=== PATIENT | female | born 1960 | race Caucasian/White ===

== ENCOUNTER 2017-12-20 00:46 | Emergency (ER) | payer OTHER ==
[~2017-12-20] VITALS: Ht 162.6 cm; Wt 167.6 kg
[2017-12-20 00:48] VITALS: TEMP 36.7; Ht 162.6 cm; Wt 167.6 kg
[2017-12-20] MEDS ORDERED: DiphenhydrAMINE HCL 50 MG/ML VIAL IV STA (01:09)
[2017-12-20] MEDS ORDERED: METOCLOPRAMIDE HCL INJ 5 MG/ML 2 ML VIAL IV STA (01:09)
[2017-12-20] MEDS ORDERED: KETOROLAC TROMETHAMINE 30 MG/ML VIAL IV STA (01:09)
[2017-12-20 01:50] LABS: BASO % 0.2 %; BASO ABS # 0.02 K/uL (0-0.2); EOS % 3.1 %; EOS ABS # 0.27 K/uL (0-0.5); HEMATOCRIT 42.2 % (37-47); HEMOGLOBIN 14.5 g/dL (12.0-16.0); IG# 0.01 K/uL (0.00-0.02); LYMPH % 33.8 %; LYMPH ABS # 2.91 K/uL (1.2-3.4); MEAN CELL VOLUME 89.8 fL (80-100); MEAN CORPUSCULAR HEMOGLOBIN 30.9 pg (25-34); MEAN CORPUSCULAR HGB CONC 34.4 g/dl (32-36); MEAN PLATELET VOLUME 11.4 fL (7.4-10.4); MONO % 9.3 %; NEUT % 53.5 %; PLATELET COUNT 176 K/uL (130-400); RED CELL DISTRIBUTION WIDTH CV 14.1 % (11.5-14.5); RED CELL DISTRIBUTION WIDTH SD 46.4 fL (36.4-46.3); WHITE BLOOD COUNT 8.61 K/uL (4.8-10.8)
[2017-12-20 01:57] LABS: PTT PATIENT 25.4 SECONDS (21.0-31.0)
[2017-12-20] MEDS ORDERED: PRT/20 PO (01:58)
[2017-12-20] MEDS ORDERED: ESCI10TA17 PO (01:59)
[2017-12-20] MEDS ORDERED: AMLO5TAB3 PO (02:00)
[2017-12-20] MEDS ORDERED: SPIR50TA2 PO (02:01)
[2017-12-20] MEDS ORDERED: CHOL1000 PO (02:02)
[2017-12-20] MEDS ORDERED: ACET1TAB84 PO (02:02)
[2017-12-20] MEDS ORDERED: OXYC-57 PO (02:03)
[2017-12-20] MEDS ORDERED: FRS/40 PO (02:04)
[2017-12-20 02:10] LABS: ALBUMIN 3.5 gm/dl (3.4-5.0); CALCIUM 8.7 mg/dl (8.5-10.1); CREATININE 1.19 mg/dl (0.60-1.20); POTASSIUM 4.3 mmol/L (3.5-5.1); TOTAL PROTEIN 7.6 gm/dl (6.4-8.2)
--- NOTE | 2017-12-20 03:37 | EMERGENCY ROOM VISIT NOTE ---
History First contact with patient: 00:52 Chief Complaint: KNEEPAIN Stated Complaint: PAIN,BURNING IN LEFT KNEE History of Present Illness The patient is a 57 year old female who presents to the Emergency Room with complaints of severe increasing increasing left knee pain that goes up and down her leg for the past 2 days who has had problems with this knee for greater than 10 years. Patient states she is on chronic Percocet daily for this. She has seen an orthopedic doctor. She has had knee shots before with no relief of symptoms. She saw the family care doctor yesterday and told her to do x-rays and physical therapy. Patient did not do the x-rays. She has not started physical therapy. Patient states she cannot tolerate the pain and this is prompts her to come to the ER. Patient denies fall, new injury, chest pain, dyspnea, numbness, tingling, history of blood clots. Patient is able to ambulate on the leg. Review of Systems An 10 system review of systems was completed with positives and pertinent negatives listed in the HPI. Past Medical/Surgical History Osteoarthritis, hypertension, lymphedema on Lasix, GERD, depression Social History Smoking Status: Current Every Day Smoker Current/Historical Medications Scheduled Amlodipine (Norvasc), 5 MG PO DAILY Cholecalciferol (Vitamin D3), 1 TAB PO DAILY Escitalopram (Lexapro), 10 MG PO DAILY Furosemide (Lasix), 40 MG PO DAILY Pantoprazole (Protonix), 20 MG PO DAILY Spironolactone (Aldactone), 50 MG PO DAILY Scheduled PRN Acetaminophen (Tylenol Arthritis Ext Rel), 650 MG PO Q8H PRN for Pain Oxycodone/Acetaminophen 5MG/325MG (Percocet 5MG/325MG), 1 TABLET PO Q24H PRN for Pain Physical Exam Vital Signs Date Time Temp Pulse Resp B/P (MAP) Pulse Ox O2 Delivery O2 Flow Rate FiO2 12/20/17 02:25 63 22 136/64 95 Room Air 12/20/17 00:48 36.7 76 18 172/90 99 Room Air Physical Exam VITALS: Vitals are noted on the nurse's note and reviewed by myself. Vital signs stable. GENERAL: Morbidly obese patient, in no acute distress, nondiaphoretic, well- developed well-nourished. SKIN: Capillary reflex less than 2 seconds. HEENT: Normocephalic. PERRLA. EOMI. Nares patent. Mucous membranes moist. Neck is supple without nuchal rigidity. HEART: Regular rate and rhythm without murmurs gallops or rubs. LUNGS: Clear to auscultation bilaterally without wheezes, rales or rhonchi. No retractions or accessory muscle use. ABDOMEN: Positive bowel sounds x 4. Normal tympanic percussion. Soft, protuberant, obese, nontender, without masses or organomegaly. Moore sign negative. No guarding or rebound tenderness. MUSCULOSKELETAL: No gross musculoskeletal defects. No calf tenderness. Bilateral legs extremely edematous unchanged per patient. Left knee tender to palpation with increased pain with range of motion without erythema or warmth. Left femur valles ankle and foot nontender to palpation. Pedal pulses +2 equal and present bilaterally. NEURO: Patient was alert and oriented to person place and time. Normal sensation to light and sharp touch. No focal neurological deficits. Medical Decision & Procedures Laboratory Results 12/20/17 01:35 Red Blood Count 4.70, Mean Corpuscular Volume 89.8, Mean Corpuscular Hemoglobin 30.9, Mean Corpuscular Hemoglobin Concent 34.4, Mean Platelet Volume 11.4, Neutrophils (%) (Auto) 53.5, Lymphocytes (%) (Auto) 33.8, Monocytes (%) (Auto) 9.3, Eosinophils (%) (Auto) 3.1, Basophils (%) (Auto) 0.2, Neutrophils # (Auto) 4.60, Lymphocytes # (Auto) 2.91, Monocytes # (Auto) 0.80, Eosinophils # (Auto) 0.27, Basophils # (Auto) 0.02 12/20/17 01:35 Test 12/20/17 01:35 White Blood Count 8.61 K/uL (4.8-10.8) Red Blood Count 4.70 M/uL (4.2-5.4) Hemoglobin 14.5 g/dL (12.0-16.0) Hematocrit 42.2 % (37-47) Mean Corpuscular Volume 89.8 fL (80-100) Mean Corpuscular Hemoglobin 30.9 pg (25-34) Mean Corpuscular Hemoglobin Concent 34.4 g/dl (32-36) Platelet Count 176 K/uL (130-400) Mean Platelet Volume 11.4 fL (7.4-10.4) Neutrophils (%) (Auto) 53.5 % Lymphocytes (%) (Auto) 33.8 % Monocytes (%) (Auto) 9.3 % Eosinophils (%) (Auto) 3.1 % Basophils (%) (Auto) 0.2 % Neutrophils # (Auto) 4.60 K/uL (1.4-6.5) Lymphocytes # (Auto) 2.91 K/uL (1.2-3.4) Monocytes # (Auto) 0.80 K/uL (0.11-0.59) Eosinophils # (Auto) 0.27 K/uL (0-0.5) Basophils # (Auto) 0.02 K/uL (0-0.2) RDW Standard Deviation 46.4 fL (36.4-46.3) RDW Coefficient of Variation 14.1 % (11.5-14.5) Immature Granulocyte % (Auto) 0.1 % Immature Granulocyte # (Auto) 0.01 K/uL (0.00-0.02) Prothrombin Time 10.0 SECONDS (9.0-12.0) Prothromb Time International Ratio 1.0 (0.9-1.1) Activated Partial Thromboplast Time 25.4 SECONDS (21.0-31.0) Partial Thromboplastin Ratio 1.0 Anion Gap 5.0 mmol/L (3-11) Est Creatinine Clear Calc Drug Dose 82.2 ml/min Estimated GFR () 58.7 Estimated GFR (Non- 50.6 BUN/Creatinine Ratio 17.5 (10-20) Calcium Level 8.7 mg/dl (8.5-10.1) Total Bilirubin 0.2 mg/dl (0.2-1) Aspartate Amino Transf (AST/SGOT) 11 U/L (15-37) Alanine Aminotransferase (ALT/SGPT) 14 U/L (12-78) Alkaline Phosphatase 102 U/L (45-117) Total Protein 7.6 gm/dl (6.4-8.2) Albumin 3.5 gm/dl (3.4-5.0) Globulin 4.1 gm/dl (2.5-4.0) Albumin/Globulin Ratio 0.9 (0.9-2) Lyme Disease IgG Antibody NEG (NEG) Lyme Disease IgM Antibody NEG (NEG) Medications Administered Medications (Trade) Dose Ordered Sig/Froylan Route Start Time Stop Time Status Last Admin Dose Admin Ketorolac Tromethamine (Toradol Inj) 10 mg NOW STAT IV 12/20/17 01:09 12/20/17 01:11 DC 12/20/17 01:39 10 MG Diphenhydramine HCl (Benadryl Inj) 25 mg NOW STAT IV 12/20/17 01:09 12/20/17 01:11 DC 12/20/17 01:39 25 MG Metoclopramide HCl (Reglan Inj) 10 mg NOW STAT IV 12/20/17 01:09 12/20/17 01:11 DC 12/20/17 01:39 10 MG ED Course Prior records reviewed and summarized above. Triage Nursing notes reviewed. Additional history obtained from the family. The patient's history was concerning for swelling and pain in the leg. Differential diagnosis: Etiologies such as acute on chronic knee pain, DVT, musculoskeletal, infection, joint effusion, trauma, lymphedema, idiopathic, CHF, as well as others were entertained.. Physical examination: The physical examination revealed no signs of infection. Neurovascularly intact. ER treatment provided: Toradol, Reglan, Benadryl On reassessment the patient felt better. Diagnostics interpreted by me: The labs revealed stable H&H. Negative Lyme's No leukocytosis Imaging studies: US VENOUS LEFT LOWER EXTREMITY: Examination limited by patient body habitus. No evidence for deep venous thrombosis involving the left lower extremity. The calf veins were not well visualized. Radiologist: Stevie Schneider MD Knee x-ray with no acute fracture or effusion per my interpretation This appears to be consistent with acute on chronic knee pain. Patient was neurovascularly and neurologically intact. Patient had no acute findings for septic joint. No acute findings on the above workup. Her pain has been ongoing for greater than 10 years. She was offered a walker for ambulation and declined. She is advised to follow-up with orthopedics and physical therapy as instructed by her family care doctor. She is advised to take medications as directed. She is advised to return to the ER immediately for severe pain, numbness, tingling, worsening signs or symptoms or as needed. By the evaluation outlined above emergent etiologies such as DVT, septic joint, trauma , infection, CHF, as well as others were deemed relatively unlikely. The pt informed about the findings as listed above. All questions were answered and pleased with the treatment. Return instructions were outlined and the patient was discharged in stable condition. Referral: The patient was referred back to their primary care physician for follow-up in 2 to 3 days for a recheck of the current condition. case reviewed with my attending The chart was completed utilizing [employer] Speech voice recognition software. Grammatical errors, random word insertions, pronoun errors, and incomplete sentences are an occassional consequence of this system due to software limitations, ambient noise, and hardware issues. Any formal questions or concerns about the content, text, or information contained within the body of this dictation should be directly addressed to the physician assistant front end manager for clarification. Medical Decision as above Impression Primary Impression: Left knee pain Departure Information Dispostion Home / Self-Care Condition GOOD Referrals No Doctor, Assigned (PCP) Patient Instructions [facility] Additional Instructions DO NOT drive, drink alcohol, operate machinery, or perform dangerous activities today. You were given medications in the ER that can affect your ability to safely function or operate a vehicle. Ibuprofen(Motrin, Advil) may be used for fever or pain. Use 600mg every six hours as needed. Take with food. Avoid using more than 2400mg in a 24 hour period. Do not use 2400mg per day for more than three consecutive days without physician direction. Prolonged inappropriate use can lead to stomach upset or ulcers. This medication can be taken if you need to drive, work, or perform activities which may be dangerous when taking narcotic pain medication. (AND/OR) Acetaminophen(Tylenol) may be used for fever or pain. Use 1000mg every six hours as needed. Avoid using more than 3000mg in a 24 hour period. This medication can be taken if you need to drive, work, or perform activities which may be dangerous when taking narcotic pain medication. Ice compresses for 20 minutes at a time four times daily for 2-3 days. Rest and elevate your injury. Continue current medications. Return to the ER immediately for any numbness, tingling, severe pain, extreme swelling in the extremity or as needed. Call Orthopedics tomorrow to arrange follow up for your ongoing knee problems. Problem Qualifiers Primary Impression: Left knee pain Chronicity: acute Qualified Codes: M25.562 - Pain in left knee
[2017-12-20 03:40] VITALS: BP 142/86; PULSE 63; O2SAT 95
--- NOTE | 2017-12-20 06:45 | DIAGNOSTIC IMAGING REPORT ---
LEFT LOWER EXTREMITY VENOUS DOPPLER CLINICAL HISTORY: Left lower extremity edema. COMPARISON STUDY: No previous studies for comparison. TECHNIQUE: Sonography of the deep venous system of the left lower extremity was performed. Compression and augmentation were evaluated. FINDINGS: Exam was technically difficult due to suboptimal penetration. The common femoral, superficial femoral and popliteal veins were compressible. Augmentation was normal. Calf vessels were not well visualized on this exam. IMPRESSION: Technically difficult exam but no evidence of deep venous thrombus within the left lower extremity. Calf vessels not well evaluated on this exam. Electronically signed by: Luis Hernandez M.D. 12/20/2017 6:44 AM Dictated Date/Time: 12/20/2017 6:43 AM
--- NOTE | 2017-12-20 06:47 | DIAGNOSTIC IMAGING REPORT ---
L KNEE 3 VIEWS CLINICAL HISTORY: Left knee pain. COMPARISON: None FINDINGS: Note is made of moderate lateral patellar tilt with marked narrowing of the lateral patellofemoral joint space. There is also moderate to severe lateral compartment joint space narrowing of the left knee. Extensive tricompartmental osteophytosis of the left knee is noted. No fracture or joint effusion is identified. Bony prominence of the tibial tubercle is chronic. IMPRESSION: 1. No acute fracture or joint effusion of the left knee. 2. Severe lateral and patellofemoral compartment osteoarthritis of the left knee. Electronically signed by: Luis Hernandez M.D. 12/20/2017 6:45 AM Dictated Date/Time: 12/20/2017 6:44 AM
== END 2017-12-20 03:47 | disposition home or self-care (01) ==
LOC: C.EDB 00:47 → C.EDA 03:47
DX: M25.562 Pain in left knee (principal); M17.12 Unilateral primary osteoarthritis, left knee; I10 Essential (primary) hypertension; I89.0 Lymphedema, not elsewhere classified; K21.9 Gastro-esophageal reflux disease without esophagitis; F32.9 Major depressive disorder, single episode, unspecified; F17.210 Nicotine dependence, cigarettes, uncomplicated; Z79.899 Other long term (current) drug therapy